=== PATIENT | female | born 1955 | race African-American/Black ===

== ENCOUNTER 2017-03-12 11:53 | Emergency (ER) | payer SELFPAY ==
[2017-03-12] MEDS ORDERED: HYDROcodone/Acetaminophen 10/325 mg Tablet ONE (14:24)
== END 2017-03-12 14:20 | disposition home or self-care (01) ==
LOC: ERS 11:53
DX: M54.41 Lumbago with sciatica, right side (principal)
CPT/HCPCS: 99283

== ENCOUNTER 2018-01-20 11:42 | Emergency (ER) | payer SELFPAY ==
[2018-01-20 12:28] LABS: Bilirubin Negative (Negative); Blood, Urine Small (Negative); Clarity CLEAR (Clear); Glucose, Urine (Dipstick) Negative (Negative); Leukocyte Negative (Negative); Nitrite Negative (Negative); Protein, Urine (Dipstick) Negative (Neg-Trace); Specific Gravity, Urine 1.019 (1.002-1.036); Urobilinogen 0.2 mg/dL (0.2-1.0); pH, Urine 5.5 (5.0-9.0)
[2018-01-20 12:30] LABS: Bacteria/HPF None Seen HPF (None Seen); Hyaline Casts/LPF 0-3 HYALINE CAST LPF (0-3 Hyaline); Pathc Cast-AUWi Flag 0.29 (0-2.49); Squamous Epithelial 0-3 HPF (0-3); WBC/HPF 0-3 HPF (0-3)
== END 2018-01-20 13:22 | disposition home or self-care (01) ==
LOC: ERS 11:42
DX: S39.012A Strain of muscle, fascia and tendon of lower back, initial encounter (principal); X58.XXXA Exposure to other specified factors, initial encounter
CPT/HCPCS: 81003; 81015; 99283

== ENCOUNTER 2018-02-17 19:31 | Emergency (ER) | payer SELFPAY ==
[2018-02-17] MEDS ORDERED: Adacel (T-DAP) 0.5 ML VIAL ONE ×2 (19:46→20:02)
[2018-02-17] MEDS ORDERED: Lidocaine 1% w/Epinephrine 1:100K 20 ML VIAL ONE (19:47)
[2018-02-17] MEDS ORDERED: Lidocaine 1% (PF) 30 ML VIAL ONE (19:58)
--- NOTE | 2018-02-17 20:10 | RAD ---
LEFT THUMB THREE VIEWS: HISTORY: Patient cut thumb with broken vase. Evaluate for radiopaque foreign bodies. TECHNIQUE: AP, lateral, and oblique views of the left thumb are obtained. FINDINGS: No evidence of radiopaque foreign body seen in the soft tissues. No evidence of osseous lesions seen . IMPRESSION: Normal three views left thumb. POS: [facility]
== END 2018-02-17 20:40 | disposition home or self-care (01) ==
LOC: ERS 19:31
DX: S61.012A Laceration without foreign body of left thumb without damage to nail, initial encounter (principal); F31.9 Bipolar disorder, unspecified; F41.9 Anxiety disorder, unspecified; Z23 Encounter for immunization; W25.XXXA Contact with sharp glass, initial encounter
CPT/HCPCS: 12001; 90471; 90715; J2001

== ENCOUNTER 2018-08-22 10:37 | Emergency (ER) | payer SELFPAY ==
--- NOTE | 2018-08-22 11:54 | RAD ---
Exam:3 views right hand HISTORY: Pain. Injury. COMPARISON: None FINDINGS: Joint spaces are preserved. Nondisplaced fracture involving the proximal phalanx of the first digit. There does appear to be a co mponent of intra-articular extension. IMPRESSION: Fracture involving the proximal phalanx of the right hand first digit.
== END 2018-08-22 13:05 | disposition home or self-care (01) ==
LOC: ERS 10:37
DX: S62.514A Nondisplaced fracture of proximal phalanx of right thumb, initial encounter for closed fracture (principal); W20.8XXA Other cause of strike by thrown, projected or falling object, initial encounter
CPT/HCPCS: 29125

== ENCOUNTER 2022-06-01 01:29 | Emergency (ER) | payer MEDICARE, OTHER, SELFPAY ==
[2022-06-01] MEDS ORDERED: Orphenadrine Citrate 60 MG/2 ML VIAL IM SCH (02:45)
[2022-06-01] MEDS ORDERED: Ketorolac Tromethamine 30 MG/ML VIAL ONE (02:47)
[2022-06-01] MEDS ORDERED: Dexamethasone 10 MG/ML VIAL ONE (02:47)
== END 2022-06-01 04:22 | disposition home or self-care (01) ==
LOC: ERS 01:29
DX: S39.012A Strain of muscle, fascia and tendon of lower back, initial encounter (principal); Y93.F2 Activity, caregiving, lifting
CPT/HCPCS: 96372; 99283; J1100; J1885; J2360

== ENCOUNTER 2022-06-06 22:48 | Emergency (ER) | payer MEDICARE ==
[2022-06-07] MEDS ORDERED: Ketorolac Tromethamine 30 MG/ML VIAL ONE (02:30)
== END 2022-06-07 03:46 | disposition home or self-care (01) ==
LOC: ERS 22:48
DX: M25.551 Pain in right hip (principal)
CPT/HCPCS: 96372; J1885